=== PATIENT | female | born 1950 | race Two or more races ===

== ENCOUNTER → 2016-12-02 | Outpatient (CLI) | payer OTHER, MEDICARE | LOC: FIMAGING 14:55 | PROVIDERS: ATTEND Internal Medicine | DX: Z12.31 Encounter for screening mammogram for malignant neoplasm of breast (principal) | CPT/HCPCS: G0202 ==

== ENCOUNTER 2017-07-25 04:41 | Emergency (ER) | payer OTHER, MEDICARE ==
--- NOTE | 2017-07-25 04:56 | CPEKG ---
Heart Rate: 87 RR Interval: 690 P-R Interval: 143 QRSD Interval: 84 QT Interval: 336 QTC Interval: 404 P Orosi: 46 QRS Orosi: -8 T Wave Orosi: 200 EKG Severity - ABNORMAL ECG - EKG Impression: SINUS RHYTHM EKG Impression: PROBABLE INFERIOR INFARCT, AGE INDETERMINATE EKG Impression: unchanged from EKG 06/29/10 Electronically Signed By: Yun Shelton 26-Jul-2017 05:30:27
[2017-07-25] MEDS ORDERED: NS 500 ML IV ONE (05:01)
[2017-07-25 05:08] LABS: PLATELET COUNT 269 10^3/uL (150-400)
--- NOTE | 2017-07-25 05:08 | EDPHY ---
H & P Stated Complaint: pt says she woke up with heart palpitations Time Seen by Provider: 07/25/17 05:00 HPI/ROS: HPI The patient presents with palpitations which she felt in her chest and awoke her from sleep at about 3:30 a.m. This morning. They were constant, and it felt like she had just exerted herself. She did not have any chest pain, shortness of breath, nausea, vomiting, dizziness, diaphoresis. Over the last 1 year she thinks she had 1 or 2 other episodes. She is not on any medications though does have a history of hypothyroidism. She felt well yesterday. REVIEW OF SYSTEMS Constitutional: No fever, no chills. Eyes: No discharge. ENT: No sore throat. Cardiovascular: No chest pain, positive for palpitations. Respiratory: No cough, no shortness of breath. Gastrointestinal: No abdominal pain, no vomiting. Genitourinary: No hematuria. Musculoskeletal: No back pain. Skin: No rashes. Neurological: No headache. PMHx: History of hypothyroidism Soc Hx: Lives at home with PHYSICAL General Appearance: Alert, no distress Eyes: Pupils equal and round no pallor or injection ENT, Mouth: Mucous membranes moist Respiratory: There are no retractions, lungs are clear to auscultation Cardiovascular: Regular rate and rhythm Gastrointestinal: Abdomen is soft and non-tender, no masses, bowel sounds normal Neurological: A&O, moves all extremities Skin: Warm and dry, no rashes Musculoskeletal: Neck is supple non tender Extremities: symmetrical, full range of motion Psychiatric: Patient is oriented X 3, there is no agitation Source: Patient Exam Limitations: No limitations - Medical/Surgical History Hx Asthma: No Hx Chronic Respiratory Disease: No Hx Diabetes: No Hx Cardiac Disease: No Hx Renal Disease: No Hx Cirrhosis: No Hx Alcoholism: No Hx HIV/AIDS: No Hx Splenectomy or Spleen Trauma: No Other PMH: surg for ovarian cyst, hypothyroid - Social History Smoking Status: Never smoked Constitutional: Initial Vital Signs Heart Rate 156 H 07/25/17 04:45 Respiratory Rate 14 07/25/17 04:45 Blood Pressure 167/117 H 07/25/17 04:45 O2 Sat (%) 90 L 07/25/17 04:45 O2 Delivery Mode Nasal Cannula O2 (L/minute) 2 Allergies/Adverse Reactions: No Known Allergies Allergy (Verified 07/25/17 04:49) Home Medications: Medication Instructions Recorded Calcium Carb W/Vit D [Calcium Carb 500 mg PO DAILY 02/20/13 W/Vit D 500/200 (OTC)] Levothyroxine [Synthroid 50 mcg 50 mcg PO DAILY06 02/20/13 (RX)] Aspirin [Aspirin 325 mg (*)] 325 mg PO DAILY #30 tab 07/25/17 Medical Decision Making - Diagnostics EKG Interpretation: EKG: Complete interpretation has been separately recorded in the [email or web address] archive. Summary impression: Diffuse T-wave flattening, unchanged from prior EKG dated 2014. Imaging Results: Chest x-ray two views demonstrates no cardiomegaly, no effusion, no infiltrate, interpreted by me, radiology interpretation is pending. Differential Diagnosis: This is a 66-year-old female who is healthy who presents with palpitations which awoke her from sleep tonight. She has had no chest pain, shortness of breath, nausea or vomiting with this. She reports 1-2 episodes of the same over the course of the last 1 year. In the emergency department, patient was immediately placed on the senior project leader/team lead because of initial heart rate of 150. Monitor shows likely a flutter at 160. However, this lasted for less than 1 min and patient spontaneously converted to a normal sinus rhythm with an EKG which is unchanged from prior in 2015. Basic labs were checked and were all unremarkable including troponin, thyroid studies, BNP. Patient had no ongoing symptoms and was monitored for several hours. She remained in a normal sinus rhythm. I feel she has suffered from paroxysmal atrial flutter, verses SVT. I have calculated her chads Vasc score and it is 2. She may require anticoagulation, however given the paroxysmal nature of her atrial flutter she is at lower risk of CVA. I will start her on aspirin 325 mg for anti-platelet affect. I feel she is suitable for discharge with outpatient follow-up. She is comfortable calling Cardiology for an appointment in the next few days. - Data Points Laboratory Results: Laboratory Results 07/25/17 04:50 07/25/17 04:50 07/25/17 07/25/17 04:50 04:50 WBC 7.35 10^3/uL 10^3/uL (3.80-9.50) RBC 4.83 10^6/uL 10^6/uL (4.18-5.33) Hgb 16.0 g/dL g/dL (12.6-16.3) Hct 48.5 % H % (38.0-47.0) MCV 100.4 fL H fL (81.5-99.8) MCH 33.1 pg pg (27.9-34.1) MCHC 33.0 g/dL g/dL (32.4-36.7) RDW 12.6 % % (11.5-15.2) Plt Count 269 10^3/uL 10^3/uL (150-400) MPV 11.6 fL fL (8.7-11.7) Neut % (Auto) 41.7 % % (39.3-74.2) Lymph % (Auto) 49.0 % H % (15.0-45.0) Polk % (Auto) 7.2 % % (4.5-13.0) Eos % (Auto) 1.6 % % (0.6-7.6) Baso % (Auto) 0.4 % % (0.3-1.7) Nucleat RBC Rel Count 0.0 % % (0.0-0.2) Absolute Neuts (auto) 3.06 10^3/uL 10^3/uL (1.70-6.50) Absolute Lymphs (auto) 3.60 10^3/uL H 10^3/uL (1.00-3.00) Absolute Monos (auto) 0.53 10^3/uL 10^3/uL (0.30-0.80) Absolute Eos (auto) 0.12 10^3/uL 10^3/uL (0.03-0.40) Absolute Basos (auto) 0.03 10^3/uL 10^3/uL (0.02-0.10) Absolute Nucleated RBC 0.00 10^3/uL 10^3/uL (0-0.01) Immature Gran % 0.1 % % (0.0-1.1) Immature Gran # 0.01 10^3/uL 10^3/uL (0.00-0.10) Sodium 146 mEq/L H mEq/L (135-145) Potassium 3.9 mEq/L mEq/L (3.5-5.2) Chloride 106 mEq/L mEq/L (97-110) Carbon Dioxide 28 mEq/l mEq/l (22-31) Anion Gap 12 mEq/L mEq/L (8-16) BUN 15 mg/dL mg/dL (7-23) Creatinine 0.7 mg/dL mg/dL (0.6-1.0) Estimated GFR > 60 Glucose 96 mg/dL mg/dL (70-100) Calcium 10.6 mg/dL H mg/dL (8.5-10.4) Magnesium 1.9 mg/dL mg/dL (1.6-2.3) Troponin I < 0.012 ng/mL ng/mL (0.000-0.034) NT-Pro-B Natriuret Pep 22 pg/mL pg/mL (0-125) TSH 1.000 uIU/mL uIU/mL (0.465-4.680) Medications Given: Discontinued Medications Sodium Chloride (Ns) 500 mls @ 1,000 mls/hr IV EDNOW ONE PRN Reason: Protocol Stop: 07/25/17 05:30 Last Admin: 07/25/17 05:08 Dose: 500 mls Departure - Departure Disposition: Home, Routine, Self-Care Clinical Impression: Paroxysmal atrial flutter Condition: Good Instructions: Atrial Flutter (ED) Additional Instructions: Your senior project leader/team lead today showed that your in atrial flutter with a heart rate of 150. Because of this, you should follow up with the probation supervisor in the next few days. I have given you the name of Dr. Oreilly and I would like for you to call him on Wednesday to arrange for a follow-up appointment. In the meantime, you should take aspirin 325 mg once daily. You should return to the emergency department if your worse in any way. Referrals: Rick León MD [Primary Care Provider] - As per Instructions Eb Oreilly MD [Medical Doctor] - As per Instructions Prescriptions: Aspirin [Aspirin 325 mg (*)] 325 mg PO DAILY #30 tab
[2017-07-25 06:47] VITALS: BP 135/102
== END 2017-07-25 06:45 | disposition home or self-care (01) ==
DX: I48.92 Unspecified atrial flutter (principal); E86.9 Volume depletion, unspecified; Z79.82 Long term (current) use of aspirin

== ENCOUNTER → 2018-01-14 | Outpatient (CLI) | payer OTHER, MEDICARE | LOC: FIMAGING 11:23 | PROVIDERS: ATTEND Internal Medicine | DX: Z12.31 Encounter for screening mammogram for malignant neoplasm of breast (principal) ==

== ENCOUNTER → 2018-03-28 | Outpatient (CLI) | payer OTHER, MEDICARE | LOC: BMCIMAGING 10:36 | PROVIDERS: ATTEND Family Medicine | DX: I51.7 Cardiomegaly (principal); I28.9 Disease of pulmonary vessels, unspecified ==